=== PATIENT | female | born 1955 | race Caucasian/White ===

== ENCOUNTER → 2016-08-24 | Outpatient (CLI) | payer MEDICARE ==
[2016-08-24 12:54] LABS: Basophils # (A) 0.1 k/uL (0-0.2); Basophils % (A) 2 %; CH 34.3; Eosinophils # (A) 0.1 k/uL (0-0.7); Eosinophils % (A) 3 %; HCT 45.4 % (34.0-46.0); HDW 2.43; HGB 14.9 gm/dL (11.4-16.0); Luc % (Auto) 4; Lymphocytes # (A) 0.5 k/uL (1.0-4.8); Lymphocytes % (A) 18 %; MCH 34.4 pg (25.0-35.0); MCHC 32.9 g/dL (31.0-37.0); MCV 104.5 fL (80.0-100.0); Macrocytosis Moderate; Mean Platelet Volume 7.6; Monocytes # (A) 0.2 k/uL (0-1.0); Monocytes % (A) 6 %; Neutrophils % (A) 68 %; RBC 4.35 m/uL (3.80-5.40); RDW 15.1 % (11.5-15.5); WBC 2.9 k/uL (3.8-10.6); WBC (Perox) 2.95
[2016-08-24 13:11] LABS: Bilirubin, Delta 0.2 mg/dL (0.0-0.2); Total Bilirubin 0.7 mg/dL (0.2-1.3); Total Protein 7.1 g/dL (6.3-8.2)
== END | disposition home or self-care (01) ==
LOC: LABWHC1 11:42
DX: Z51.81 Encounter for therapeutic drug level monitoring (principal); Z79.899 Other long term (current) drug therapy
CPT/HCPCS: 36415; 80061; 80076; 84439; 84443; 84481; 85025

== ENCOUNTER → 2017-03-01 | Outpatient (CLI) | payer MEDICARE ==
[2017-03-01 11:10] LABS: HCT 46.6 % (34.0-46.0); HGB 14.4 gm/dL (11.4-16.0); Hypochromasia Slight; MCH 32.2 pg (25.0-35.0); MCHC 30.9 g/dL (31.0-37.0); MCV 104.3 fL (80.0-100.0); Macrocytosis Moderate; Mean Platelet Volume 8.5; Platelet Count 310 k/uL (150-450); RBC 4.47 m/uL (3.80-5.40); RDW 15.4 % (11.5-15.5)
[2017-03-01 12:14] LABS: ALT 37 U/L (9-52); AST 24 U/L (14-36); Albumin 3.7 g/dL (3.5-5.0); Alkaline Phosphatase 72 U/L (38-126); Anion Gap 7 mmol/L; Blood Urea Nitrogen 20 mg/dL (7-17); Calcium 9.5 mg/dL (8.4-10.2); Carbon Dioxide 30 mmol/L (22-30); Chloride 104 mmol/L (98-107); Cholesterol 153 mg/dL (<200); Glucose 103 mg/dL (74-99); HDL Cholesterol 61 mg/dL (40-60); LDL Cholesterol,Calculated 79 mg/dL (0-99); Potassium 4.9 mmol/L (3.5-5.1); Sodium 141 mmol/L (137-145); Total Bilirubin 0.8 mg/dL (0.2-1.3); Total Protein 6.4 g/dL (6.3-8.2); Triglycerides 64 mg/dL (<150)
== END | disposition home or self-care (01) ==
LOC: LABWHC1 10:37
PROVIDERS: ATTEND Family Medicine
DX: F39 Unspecified mood [affective] disorder (principal); R52 Pain, unspecified
CPT/HCPCS: 36415; 80053; 80061; 80175; 84443; 84481; 85027

== ENCOUNTER 2017-07-15 11:20 | Emergency (ER) | payer MEDICARE ==
[2017-07-15 12:50] LABS: Basophils # (A) 0.1 k/uL (0-0.2); Basophils % (A) 2 %; Eosinophils # (A) 0.2 k/uL (0-0.7); Eosinophils % (A) 4 %; HCT 45.3 % (34.0-46.0); HGB 14.4 gm/dL (11.4-16.0); Lymphocytes # (A) 0.6 k/uL (1.0-4.8); Lymphocytes % (A) 12 %; MCH 32.8 pg (25.0-35.0); MCHC 31.8 g/dL (31.0-37.0); Macrocytosis Slight; Mean Platelet Volume 7.3; Monocytes # (A) 0.2 k/uL (0-1.0); Monocytes % (A) 4 %; Neutrophils % (A) 77 %; Platelet Count 332 k/uL (150-450); RDW 14.1 % (11.5-15.5); WBC 5.2 k/uL (3.8-10.6)
[2017-07-15 12:57] LABS: Appearance,Urine Clear (Clear); Bilirubin,Urine Negative (Negative); Blood,Urine Negative (Negative); Color,Urine Colorless; Glucose,Urine (UA) Negative (Negative); Ketones,Urine Negative (Negative); Leukocyte Esterase,Urine Moderate (Negative); Mucus,Urine Rare /hpf; Nitrite,Urine Negative (Negative); Protein,Urine Negative (Negative); Specific Gravity,Urine 1.005 (1.001-1.035); Urobilinogen,Urine <2.0 mg/dL (<2.0); WBC,Urine 2 /hpf (0-5)
[2017-07-15 13:00] LABS: INR 1.1 (<1.2); Partial Thromboplastin Time 24.8 sec (22.0-30.0); Prothrombin Time 10.8 sec (9.0-12.0)
[2017-07-15 13:03] LABS: ALT 21 U/L (9-52); AST 20 U/L (14-36); Albumin 3.7 g/dL (3.5-5.0); Alkaline Phosphatase 81 U/L (38-126); Amylase 47 U/L (30-110); Anion Gap 12 mmol/L; Blood Urea Nitrogen 13 mg/dL (7-17); Calcium 9.3 mg/dL (8.4-10.2); Carbon Dioxide 28 mmol/L (22-30); Chloride 104 mmol/L (98-107); Glucose 89 mg/dL (74-99); Lipase 54 U/L (23-300); Potassium 4.8 mmol/L (3.5-5.1); Sodium 144 mmol/L (137-145); Total Bilirubin 0.4 mg/dL (0.2-1.3); Total Protein 6.4 g/dL (6.3-8.2)
[2017-07-15] MEDS ORDERED: RX INFO: IV CONTRAST WAS GIVEN 1 EACH MISC MISCELLANE PRN (13:13)
[2017-07-15] MEDS ORDERED: SODIUM CHLORIDE 0.9% 1,000 ML IV ONE (13:24)
[2017-07-15] MEDS ORDERED: SODIUM CHLORIDE 0.9% 1,000 ML IV SCH (13:30)
--- NOTE | 2017-07-15 13:41 | ED ---
Abdominal Pain HPI - General Chief Complaint: Abdominal Pain Stated Complaint: abdominal pain, rectal bleeding Time Seen by Provider: 07/15/17 12:09 Source: patient, RN notes reviewed, old records reviewed Mode of arrival: ambulatory Limitations: no limitations, physical limitation - History of Present Illness Initial Comments: This patient's a 62-year-old female presents emergency Department with her sister, legal guardian chief complaint of a rectal bleeding intermittently for the past few months. Patient has a history of Down syndrome. Patient's reports that today she was complaining of some abdominal pain. She does deal with constipation. Patient has had no fevers or chills. They report that were sent in by their primary care physician for further evaluation and to be admitted for GI workup. Patient family reports that she did have an episode of bloody stool today. She states that she does have a history of diverticulitis. - Related Data Home Medications Medication Instructions Recorded Confirmed ALPRAZolam [Xanax] 0.25 mg PO BID PRN 07/15/17 07/15/17 Cholecalciferol [Vitamin D3] 1,000 unit PO DAILY 07/15/17 07/15/17 Cyanocobalamin (Vitamin B-12) 1,000 mcg PO DAILY 07/15/17 07/15/17 [Vitamin B-12] Fexofenadine HCl [Flores Allergy] 180 mg PO DAILY 07/15/17 07/15/17 Levothyroxine Sodium [Synthroid] 88 mcg PO DAILY 07/15/17 07/15/17 Meloxicam [Mobic] 7.5 mg PO DAILY 07/15/17 07/15/17 Omeprazole 20 mg PO BID 07/15/17 07/15/17 lamoTRIgine [LaMICtal] 100 mg PO DAILY 07/15/17 07/15/17 Previous Rx's Medication Instructions Recorded Docusate [Colace] 100 mg PO DAILY #20 capsule 07/15/17 Allergies Allergy/AdvReac Type Severity Reaction Status Date / Time No Known Allergies Allergy Verified 07/15/17 12:06 Review of Systems ROS Statement: Those systems with pertinent positive or pertinent negative responses have been documented in the HPI. ROS Other: All systems not noted in ROS Statement are negative. Past Medical History Past Medical History: Unable to Obtain Additional Past Medical History / Comment(s): downs syndrome History of Any Multi-Drug Resistant Organisms: None Reported Past Surgical History: Unable to Obtain Past Psychological History: No Psychological Hx Reported Smoking Status: Never smoker Past Alcohol Use History: None Reported Past Drug Use History: None Reported General Exam - General Exam Comments Initial Comments: This patient's a 62-year-old female. Alert and oriented. No acute distress. Limitations: no limitations, physical limitation General appearance: alert, in no apparent distress Head exam: Present: atraumatic, normocephalic, normal inspection Eye exam: Present: normal appearance, PERRL, EOMI. Absent: scleral icterus, conjunctival injection, periorbital swelling ENT exam: Present: normal exam, mucous membranes moist Neck exam: Present: normal inspection. Absent: tenderness, meningismus, lymphadenopathy Respiratory exam: Present: normal lung sounds bilaterally. Absent: respiratory distress, wheezes, rales, rhonchi, stridor Cardiovascular Exam: Present: regular rate, normal rhythm, normal heart sounds. Absent: systolic murmur, diastolic murmur, rubs, gallop, clicks GI/Abdominal exam: Present: soft, tenderness (Left lower quadrant tenderness.), normal bowel sounds. Absent: distended, guarding, rebound, rigid Extremities exam: Present: normal inspection, full ROM, normal capillary refill. Absent: tenderness, pedal edema, joint swelling, calf tenderness Back exam: Present: normal inspection Neurological exam: Present: alert, oriented X3, CN II-XII intact Psychiatric exam: Present: normal affect, normal mood Skin exam: Present: warm, dry, intact, normal color. Absent: rash Course Vital Signs 07/15/17 07/15/17 07/15/17 11:27 13:39 15:04 Temperature 98.0 F 97.9 F Pulse Rate 65 65 58 L Respiratory 16 16 15 Rate Blood Pressure 137/65 138/69 144/61 O2 Sat by Pulse 100 97 100 Oximetry Medical Decision Making - Lab Data Result diagrams: 07/15/17 12:30 07/15/17 12:30 Lab Results 07/15/17 07/15/17 07/15/17 Range/Units 12:30 12:30 12:30 WBC 5.2 (3.8-10.6) k/uL RBC 4.40 (3.80-5.40) m/uL Hgb 14.4 (11.4-16.0) gm/dL Hct 45.3 (34.0-46.0) % MCV 103.0 H (80.0-100.0) fL MCH 32.8 (25.0-35.0) pg MCHC 31.8 (31.0-37.0) g/dL RDW 14.1 (11.5-15.5) % Plt Count 332 (150-450) k/uL Neutrophils % 77 % Lymphocytes % 12 % Monocytes % 4 % Eosinophils % 4 % Basophils % 2 % Neutrophils # 4.0 (1.3-7.7) k/uL Lymphocytes # 0.6 L (1.0-4.8) k/uL Monocytes # 0.2 (0-1.0) k/uL Eosinophils # 0.2 (0-0.7) k/uL Basophils # 0.1 (0-0.2) k/uL Macrocytosis Slight PT 10.8 (9.0-12.0) sec INR 1.1 (<1.2) APTT 24.8 (22.0-30.0) sec Sodium 144 (137-145) mmol/L Potassium 4.8 (3.5-5.1) mmol/L Chloride 104 (98-107) mmol/L Carbon Dioxide 28 (22-30) mmol/L Anion Gap 12 mmol/L BUN 13 (7-17) mg/dL Creatinine 0.80 (0.52-1.04) mg/dL Est GFR (CKD-EPI)AfAm >90 (>60 ml/min/1.73 sqM) Est GFR (CKD-EPI)NonAf 81 (>60 ml/min/1.73 sqM) Glucose 89 (74-99) mg/dL Calcium 9.3 (8.4-10.2) mg/dL Total Bilirubin 0.4 (0.2-1.3) mg/dL AST 20 (14-36) U/L ALT 21 (9-52) U/L Alkaline Phosphatase 81 (38-126) U/L Total Protein 6.4 (6.3-8.2) g/dL Albumin 3.7 (3.5-5.0) g/dL Amylase 47 (30-110) U/L Lipase 54 (23-300) U/L Urine Color Urine Appearance (Clear) Urine pH (5.0-8.0) Ur Specific [place] (1.001-1.035) Urine Protein (Negative) Urine Glucose (UA) (Negative) Urine Ketones (Negative) Urine Blood (Negative) Urine Nitrite (Negative) Urine Bilirubin (Negative) Urine Urobilinogen (<2.0) mg/dL Ur Leukocyte Esterase (Negative) Urine WBC (0-5) /hpf Urine Mucus (None) /hpf Stool Occult Blood (Negative) 07/15/17 07/15/17 Range/Units 12:30 13:37 WBC (3.8-10.6) k/uL RBC (3.80-5.40) m/uL Hgb (11.4-16.0) gm/dL Hct (34.0-46.0) % MCV (80.0-100.0) fL MCH (25.0-35.0) pg MCHC (31.0-37.0) g/dL RDW (11.5-15.5) % Plt Count (150-450) k/uL Neutrophils % % Lymphocytes % % Monocytes % % Eosinophils % % Basophils % % Neutrophils # (1.3-7.7) k/uL Lymphocytes # (1.0-4.8) k/uL Monocytes # (0-1.0) k/uL Eosinophils # (0-0.7) k/uL Basophils # (0-0.2) k/uL Macrocytosis PT (9.0-12.0) sec INR (<1.2) APTT (22.0-30.0) sec Sodium (137-145) mmol/L Potassium (3.5-5.1) mmol/L Chloride (98-107) mmol/L Carbon Dioxide (22-30) mmol/L Anion Gap mmol/L BUN (7-17) mg/dL Creatinine (0.52-1.04) mg/dL Est GFR (CKD-EPI)AfAm (>60 ml/min/1.73 sqM) Est GFR (CKD-EPI)NonAf (>60 ml/min/1.73 sqM) Glucose (74-99) mg/dL Calcium (8.4-10.2) mg/dL Total Bilirubin (0.2-1.3) mg/dL AST (14-36) U/L ALT (9-52) U/L Alkaline Phosphatase (38-126) U/L Total Protein (6.3-8.2) g/dL Albumin (3.5-5.0) g/dL Amylase (30-110) U/L Lipase (23-300) U/L Urine Color Colorless Urine Appearance Clear (Clear) Urine pH 6.0 (5.0-8.0) Ur Specific [place] 1.005 (1.001-1.035) Urine Protein Negative (Negative) Urine Glucose (UA) Negative (Negative) Urine Ketones Negative (Negative) Urine Blood Negative (Negative) Urine Nitrite Negative (Negative) Urine Bilirubin Negative (Negative) Urine Urobilinogen <2.0 (<2.0) mg/dL Ur Leukocyte Esterase Moderate H (Negative) Urine WBC 2 (0-5) /hpf Urine Mucus Rare H (None) /hpf Stool Occult Blood Negative (Negative) - Radiology Data Radiology results: report reviewed No visualization of the appendix. Nonacute inflammatory processes or obstruction changes present at this time. Mild fatty hepatic infiltration. Disposition Clinical Impression: History of rectal bleeding Disposition: HOME SELF-CARE Condition: Good Instructions: Rectal Bleeding (ED) Additional Instructions: Advised follow-up with primary care provider as well as follow-up with GI specialist. Recommended using daily stool softener. Increase fiber in her diet. Return to the emergency department if any alarming signs or symptoms occur including severe bloody stool. Prescriptions: Docusate [Colace] 100 mg PO DAILY #20 capsule Is patient prescribed a controlled substance at d/c from ED?: No If prescribed controlled substance>3 days was MAPS reviewed?: No When asked, does pt state using other controlled substances?: No Referrals: Ning Sherman MD [Primary Care Provider] - 1-2 days Time of Disposition: 15:09
--- NOTE | 2017-07-15 14:21 | CT ---
EXAMINATION TYPE: CT abdomen pelvis w con DATE OF EXAM: 07/15/2017 COMPARISON: NONE HISTORY: Patient complains of periumbilical pain. CT DLP: 386.5 mGycm CONTRAST: CT scan of the abdomen and pelvis is performed without Oral Contrast and with IV Contrast, patient in jected with 100 mL of Isovue 300. FINDINGS: LUNG BASES-: No visible nodule. No infiltrate. LIVER/GB: No calcified gallstones. No space occupying hepatic lesion. Biliary tree is of normal ca liber. Mild fatty hepatic infiltration. PANCREAS: No inflammation. No distinct mass. SPLEEN: No splenic enlargement. No lesion seen. ADRENALS: No nodule. No thickening. KIDNEYS/BLADDER: No hydronephrosis. No nephrolithiasis. No distinct renal mass. Urinary bladder g rossly unremarkable. BOWEL: The appendix is not clearly visualized. No definite inflammatory process to suggest appendicit is however exclusion of acute appendicitis should be made on a clinical basis. Normal bowel caliber. No inflammation. Sigmoid diverticulosis without diverticulitis. GENITAL ORGANS: No gross abnormality. LYMPH NODES: No greater than 1cm abdominal or pelvic lymph nodes are appreciated. AORTA: No significant abnormality. OSSEOUS STRUCTURES: No significant abnormality is seen. OTHER: No significant additional abnormality is seen. IMPRESSION: 1. Nonvisualization of the appendix. 2. No acute inflammatory process or obstructive change present at this time. 3. Mild fatty hepatic infiltration.
[2017-07-15 15:06] VITALS: BP 144/61; PULSE 58; RESP 15; TEMP 97.9
== END 2017-07-15 15:20 | disposition home or self-care (01) ==
LOC: EEVIPCON 11:20 → EC 11:20
DX: K59.00 Constipation, unspecified (principal); K76.0 Fatty (change of) liver, not elsewhere classified; R10.9 Unspecified abdominal pain; Q90.9 Down syndrome, unspecified; Z79.1 Long term (current) use of non-steroidal anti-inflammatories (NSAID); Z79.899 Other long term (current) drug therapy; Z87.19 Personal history of other diseases of the digestive system
CPT/HCPCS: 36415; 80053; 82150; 83690; 85025; 85610; 85730; 82272; 81001; 74177; 99284; 96360; 96361; Q9967

== ENCOUNTER 2017-10-11 08:28 | Day surgery (SDC) | payer MEDICARE, OTHER ==
[2017-10-09 14:20] VITALS: BMI 23.0
[~2017-10-11 08:28] MED LIST: LACTATED RINGERS 1,000 ML IV SCH; LIDOCAINE 1% 20 ML VIAL (10MG/ML) FOR IV START INTRADERMA PRN
[2017-10-11 09:02] VITALS: RESP 16; TEMP 98.6
[2017-10-11] MEDS ORDERED: GLYCOPYRROLATE 0.2 MG/ML 2 ML VIAL ONE (09:18)
[2017-10-11] MEDS ORDERED: PROPOFOL 10 MG/ML 20 ML VIAL IV ONE (09:18)
[2017-10-11] MEDS ORDERED: LIDOCAINE 1% INJ 10MG/ML (20 ML MDV) ONE (09:18)
--- NOTE | 2017-10-11 09:40 | P.PCN ---
Date of Procedure: 10/11/17 Procedure(s) Performed: Brief history: Patient is a pleasant 62-year-old white female with history of Down syndrome, scheduled for an elective upper endoscopy as well as colonoscopy as a part of evaluation of abdominal pain, change in bowel habits for the last several months duration Procedure performed: Esophagogastroduodenoscopy with biopsy Colonoscopy Preoperative diagnosis: GERD/abdominal pain/change in bowel habits Anesthesia: MAC Procedure: After informed consent was obtained from the patient was brought into the endoscopy unit and IV sedation was administered by anesthesia under continuous monitoring. Initially upper endoscopy was done. The Olympus GF 160 video endoscope was inserted inserted into the mouth and esophagus intubated without any difficulty and was gradually advanced into the stomach and duodenum and carefully examined. The bulb and second part of the duodenum appeared normal. The scope was then withdrawn into the stomach adequately insufflated with air and upon careful examination the antrum had patchy areas of erythema in the prepyloric area and biopsies were done from here to evaluate for H. pylori infection. The body, cardia and fundus appeared normal. The scope was then withdrawn into the esophagus. The GE junction was located at 34 cm to the incisors. It appeared regular with no erythema erosions or ulcerations. Rest of the esophagus appeared normal. Patient tolerated the procedure well. At this time the patient continued to remain sedation. Initial digital rectal examination was normal. Olympus CF 160 video colonoscope was then inserted into the rectum and gradually advanced to the cecum without any difficulty. Careful examination was performed as the scope was gradually being withdrawn. The prep was excellent. The cecum, ascending colon, transverse colon, descending colon, sigmoid colon and rectum appeared normal. Scattered sigmoid diverticulosis seen. Retroflexion was performed in the rectum and no lesions were noted. Patient tolerated the procedure well. Impression: 1. Upper endoscopy revealed mild gastritis but no evidence of esophagitis or peptic ulcer disease 2. Colonoscopy revealed scattered sigmoid diverticulosis but no evidence of colorectal neoplasia Recommendations: Findings of this examination were discussed with the patient as well marilyn family. She was advised to follow with the biopsy results. She will continue with Prilosec 20 mg daily and follow antireflux measures. She can have a repeat screening colonoscopy in 10 years.
[2017-10-11 10:01] VITALS: BP 102/68; PULSE 64
== END 2017-10-11 10:57 | disposition home or self-care (01) ==
LOC: ORWHC2ENDO 08:28
PROVIDERS: ATTEND Internal Medicine Gastroenterology
DX: K20.0 Eosinophilic esophagitis (principal); K29.50 Unspecified chronic gastritis without bleeding; K21.9 Gastro-esophageal reflux disease without esophagitis; K57.30 Diverticulosis of large intestine without perforation or abscess without bleeding; Z79.890 Hormone replacement therapy; Z79.899 Other long term (current) drug therapy; Q90.9 Down syndrome, unspecified; E07.9 Disorder of thyroid, unspecified; F39 Unspecified mood [affective] disorder
CPT/HCPCS: 88305; 88342; 45378; 43239; J2001; J2704

== ENCOUNTER 2018-02-14 11:40 | Emergency (ER) | payer MEDICARE, OTHER ==
[2018-02-14 11:47] VITALS: RESP 18
[2018-02-14] MEDS ORDERED: SODIUM CHLORIDE 0.9% 1,000 ML IV STA (12:09)
--- NOTE | 2018-02-14 12:36 | ED ---
Abdominal Pain HPI - General Chief Complaint: Abdominal Pain Stated Complaint: Abd Pain Time Seen by Provider: 02/14/18 11:58 Source: patient, EMS, RN notes reviewed, Caregiver Mode of arrival: EMS Limitations: physical limitation - History of Present Illness Initial Comments: 62-year-old female sent emergency Department via EMS for jaundice weakness. Patient reportedly was weak at her [place] republican. Patient has cognitive delay. Patient caregiver states that she is at her normal baseline. Patient had no GI issues no diarrhea no constipation. Patient had recent upper and lower GI. Patient said no fever or chills though she's had recent URI cough congestion. Patient reports no nausea vomiting. She does complain of some suprapubic pain. No dysuria. - Related Data Home Medications Medication Instructions Recorded Confirmed ALPRAZolam [Xanax] 0.25 mg PO BID PRN 07/15/17 02/14/18 Fexofenadine HCl [Flores Allergy] 180 mg PO DAILY PRN 07/15/17 02/14/18 Levothyroxine Sodium [Synthroid] 88 mcg PO DAILY 07/15/17 02/14/18 Omeprazole 20 mg PO BID 07/15/17 02/14/18 Docusate [Colace] 100 mg PO BID 02/14/18 02/14/18 Allergies Allergy/AdvReac Type Severity Reaction Status Date / Time No Known Allergies Allergy Verified 02/14/18 12:33 Review of Systems ROS Statement: Those systems with pertinent positive or pertinent negative responses have been documented in the HPI. ROS Other: All systems not noted in ROS Statement are negative. Past Medical History Past Medical History: GERD/Reflux, Thyroid Disorder Additional Past Medical History / Comment(s): Downs Syndrome; "Stomach pains" History of Any Multi-Drug Resistant Organisms: None Reported Past Surgical History: Tonsillectomy Additional Past Surgical History / Comment(s): Colonoscopy, Ankle repair Past Anesthesia/Blood Transfusion Reactions: No Reported Reaction Past Psychological History: No Psychological Hx Reported Smoking Status: Never smoker Past Alcohol Use History: None Reported Past Drug Use History: None Reported - Past Family History Mother Family Medical History: No Reported History General Exam Limitations: physical limitation General appearance: alert, in no apparent distress Head exam: Present: atraumatic, normocephalic, normal inspection Eye exam: Present: normal appearance, PERRL, EOMI. Absent: scleral icterus, conjunctival injection, periorbital swelling ENT exam: Present: normal exam, normal oropharynx, mucous membranes moist Neck exam: Present: normal inspection, full ROM. Absent: tenderness, meningismus, lymphadenopathy Respiratory exam: Present: normal lung sounds bilaterally. Absent: respiratory distress, wheezes, rales, rhonchi, stridor Cardiovascular Exam: Present: regular rate, normal rhythm, normal heart sounds. Absent: systolic murmur, diastolic murmur, rubs, gallop, clicks GI/Abdominal exam: Present: soft, tenderness (Moderate suprapubic), normal bowel sounds. Absent: distended, guarding, rebound, rigid Back exam: Absent: CVA tenderness (R), CVA tenderness (L) Skin exam: Present: warm, dry, intact, normal color. Absent: rash Course Vital Signs 02/14/18 11:41 Temperature 97.9 F Pulse Rate 69 Respiratory 18 Rate Blood Pressure 109/88 O2 Sat by Pulse 100 Oximetry Medical Decision Making - Medical Decision Making 8-year-old female presented with caregiver for weakness and [place] republican. Patient has no acute abnormality's on lab work, EKG or chest x-ray. Patient is stable and is at her normal baseline at this time. Patient was hydrated and will be discharged. - Lab Data Result diagrams: 02/14/18 12:39 02/14/18 12:39 Lab Results 02/14/18 02/14/18 02/14/18 Range/Units 12:39 12:39 12:39 WBC 4.8 (3.8-10.6) k/uL RBC 4.80 (3.80-5.40) m/uL Hgb 15.7 (11.4-16.0) gm/dL Hct 48.6 H (34.0-46.0) % MCV 101.4 H (80.0-100.0) fL MCH 32.7 (25.0-35.0) pg MCHC 32.3 (31.0-37.0) g/dL RDW 13.7 (11.5-15.5) % Plt Count 273 (150-450) k/uL Neutrophils % 81 % Lymphocytes % 8 % Monocytes % 5 % Eosinophils % 2 % Basophils % 2 % Neutrophils # 3.9 (1.3-7.7) k/uL Lymphocytes # 0.4 L (1.0-4.8) k/uL Monocytes # 0.2 (0-1.0) k/uL Eosinophils # 0.1 (0-0.7) k/uL Basophils # 0.1 (0-0.2) k/uL Macrocytosis Slight Sodium 139 (137-145) mmol/L Potassium 4.8 (3.5-5.1) mmol/L Chloride 104 (98-107) mmol/L Carbon Dioxide 27 (22-30) mmol/L Anion Gap 8 mmol/L BUN 25 H (7-17) mg/dL Creatinine 0.85 (0.52-1.04) mg/dL Est GFR (CKD-EPI)AfAm 86 (>60 ml/min/1.73 sqM) Est GFR (CKD-EPI)NonAf 75 (>60 ml/min/1.73 sqM) Glucose 104 H (74-99) mg/dL Calcium 9.0 (8.4-10.2) mg/dL Magnesium 2.2 (1.6-2.3) mg/dL Total Bilirubin 0.5 (0.2-1.3) mg/dL AST 26 (14-36) U/L ALT 18 (9-52) U/L Alkaline Phosphatase 87 (38-126) U/L Troponin I <0.012 (0.000-0.034) ng/mL Total Protein 6.9 (6.3-8.2) g/dL Albumin 3.6 (3.5-5.0) g/dL Urine Color Urine Appearance (Clear) Urine pH (5.0-8.0) Ur Specific [place] (1.001-1.035) Urine Protein (Negative) Urine Glucose (UA) (Negative) Urine Ketones (Negative) Urine Blood (Negative) Urine Nitrite (Negative) Urine Bilirubin (Negative) Urine Urobilinogen (<2.0) mg/dL Ur Leukocyte Esterase (Negative) Urine RBC (0-5) /hpf Urine WBC (0-5) /hpf Ur Squamous Epith Cells (0-4) /hpf Urine Bacteria (None) /hpf Hyaline Casts (0-2) /lpf Urine Mucus (None) /hpf 02/14/ Range/Units 12:39 WBC (3.8-10.6) k/uL RBC (3.80-5.40) m/uL Hgb (11.4-16.0) gm/dL Hct (34.0-46.0) % MCV (80.0-100.0) fL MCH (25.0-35.0) pg MCHC (31.0-37.0) g/dL RDW (11.5-15.5) % Plt Count (150-450) k/uL Neutrophils % % Lymphocytes % % Monocytes % % Eosinophils % % Basophils % % Neutrophils # (1.3-7.7) k/uL Lymphocytes # (1.0-4.8) k/uL Monocytes # (0-1.0) k/uL Eosinophils # (0-0.7) k/uL Basophils # (0-0.2) k/uL Macrocytosis Sodium (137-145) mmol/L Potassium (3.5-5.1) mmol/L Chloride (98-107) mmol/L Carbon Dioxide (22-30) mmol/L Anion Gap mmol/L BUN (7-17) mg/dL Creatinine (0.52-1.04) mg/dL Est GFR (CKD-EPI)AfAm (>60 ml/min/1.73 sqM) Est GFR (CKD-EPI)NonAf (>60 ml/min/1.73 sqM) Glucose (74-99) mg/dL Calcium (8.4-10.2) mg/dL Magnesium (1.6-2.3) mg/dL Total Bilirubin (0.2-1.3) mg/dL AST (14-36) U/L ALT (9-52) U/L Alkaline Phosphatase (38-126) U/L Troponin I (0.000-0.034) ng/mL Total Protein (6.3-8.2) g/dL Albumin (3.5-5.0) g/dL Urine Color Yellow Urine Appearance Clear (Clear) Urine pH 6.0 (5.0-8.0) Ur Specific [place] 1.029 (1.001-1.035) Urine Protein 1+ H (Negative) Urine Glucose (UA) Negative (Negative) Urine Ketones Negative (Negative) Urine Blood Negative (Negative) Urine Nitrite Negative (Negative) Urine Bilirubin Negative (Negative) Urine Urobilinogen 2.0 (<2.0) mg/dL Ur Leukocyte Esterase Small H (Negative) Urine RBC 1 (0-5) /hpf Urine WBC 5 (0-5) /hpf Ur Squamous Epith Cells 4 (0-4) /hpf Urine Bacteria Rare H (None) /hpf Hyaline Casts 36 H (0-2) /lpf Urine Mucus Many H (None) /hpf 02/14/18 14:37 EKG performed at 12:51 normal sinus rhythm with a rate of 70 [place] 116 QRS 86 QT/ QTC 422/455 Disposition Clinical Impression: Fatigue Disposition: HOME SELF-CARE Condition: Stable Instructions: Fatigue (ED) Additional Instructions: Please return to the Emergency Department if symptoms worsen or any other concerns. Is patient prescribed a controlled substance at d/c from ED?: No Referrals: Ning Sherman MD [Primary Care Provider] - 1-2 days Time of Disposition: 14:38
[2018-02-14 13:07] LABS: Basophils # (A) 0.1 k/uL (0-0.2); Basophils % (A) 2 %; Eosinophils # (A) 0.1 k/uL (0-0.7); Eosinophils % (A) 2 %; HCT 48.6 % (34.0-46.0); HGB 15.7 gm/dL (11.4-16.0); Lymphocytes # (A) 0.4 k/uL (1.0-4.8); Lymphocytes % (A) 8 %; MCH 32.7 pg (25.0-35.0); MCHC 32.3 g/dL (31.0-37.0); MCV 101.4 fL (80.0-100.0); Macrocytosis Slight; Mean Platelet Volume 7.4; Monocytes # (A) 0.2 k/uL (0-1.0); Monocytes % (A) 5 %; Neutrophils # (A) 3.9 k/uL (1.3-7.7); Neutrophils % (A) 81 %; Platelet Count 273 k/uL (150-450); RDW 13.7 % (11.5-15.5); WBC 4.8 k/uL (3.8-10.6)
--- NOTE | 2018-02-14 13:17 | XR ---
EXAMINATION TYPE: XR chest 2V DATE OF EXAM: 02/14/2018 COMPARISON: 07/23/2011 HISTORY: Shortness of breath TECHNIQUE: Frontal and lateral views of the chest are obtained. FINDINGS: Scattered senescent parenchymal changes noted. Hyperinflation compatible with COPD. No evidence for infiltrate. No evidence for atelectasis. Heart size is stable. Mediastinal structures are stable and grossly unremarkable. No evidence for hilar prominence. Degenerative changes dorsal spine. IMPRESSION: 1. No evidence for acute pulmonary disease.
[2018-02-14 13:18] LABS: Albumin 3.6 g/dL (3.5-5.0); Magnesium 2.2 mg/dL (1.6-2.3); Total Bilirubin 0.5 mg/dL (0.2-1.3); Total Protein 6.9 g/dL (6.3-8.2)
[2018-02-14 13:22] LABS: Potassium 4.8 mmol/L (3.5-5.1)
[2018-02-14 13:27] LABS: Appearance,Urine Clear (Clear); Bacteria,Urine Rare /hpf; Bilirubin,Urine Negative (Negative); Blood,Urine Negative (Negative); Color,Urine Yellow; Glucose,Urine (UA) Negative (Negative); Hyaline Casts,Urine 36 /lpf (0-2); Ketones,Urine Negative (Negative); Leukocyte Esterase,Urine Small (Negative); Mucus,Urine Many /hpf; Nitrite,Urine Negative (Negative); Protein,Urine 1+ (Negative); RBC,Urine 1 /hpf (0-5); Specific Gravity,Urine 1.029 (1.001-1.035); Squamous Epithelial Cell,Urine 4 /hpf (0-4); WBC,Urine 5 /hpf (0-5)
[2018-02-14 14:59] VITALS: BP 111/60; PULSE 68; TEMP 98.6
== END 2018-02-14 14:59 | disposition home or self-care (01) ==
LOC: EC 11:40
DX: R53.83 Other fatigue (principal); R10.9 Unspecified abdominal pain; K21.9 Gastro-esophageal reflux disease without esophagitis; E07.9 Disorder of thyroid, unspecified; Q90.9 Down syndrome, unspecified; Z79.899 Other long term (current) drug therapy
CPT/HCPCS: 36415; 71046; 80053; 81001; 83735; 84484; 85025; 93005; 96360; 99284

== ENCOUNTER 2019-04-25 17:27 | Emergency (ER) | payer MEDICARE, OTHER ==
[2019-04-25 17:34] VITALS: RESP 18
[2019-04-25] MEDS ORDERED: DICYCLOMINE 10 MG/ML 2 ML AMP IM STA (17:53)
[2019-04-25] MEDS ORDERED: ONDANSETRON 4 MG/2 ML VIAL IVP STA (17:53)
[2019-04-25] MEDS ORDERED: SODIUM CHLORIDE 0.9% 1,000 ML IV STA (17:53)
[2019-04-25 18:39] LABS: Basophils % (A) 0 %; Eosinophils # (A) 0.1 k/uL (0-0.7); Eosinophils % (A) 1 %; HCT 47.6 % (34.0-46.0); HGB 15.2 gm/dL (11.4-16.0); Lymphocytes # (A) 0.2 k/uL (1.0-4.8); Lymphocytes % (A) 3 %; MCH 33.3 pg (25.0-35.0); Macrocytosis Slight; Mean Platelet Volume 7.6; Monocytes # (A) 0.2 k/uL (0-1.0); Monocytes % (A) 3 %; Neutrophils # (A) 6.4 k/uL (1.3-7.7); Neutrophils % (A) 93 %; Platelet Count 263 k/uL (150-450); RBC 4.58 m/uL (3.80-5.40); RDW 13.6 % (11.5-15.5); WBC 6.9 k/uL (3.8-10.6)
--- NOTE | 2019-04-25 18:43 | ED ---
Nausea/Vomiting/Diarrhea HPI - General Source: family Mode of arrival: wheelchair Limitations: no limitations <Barry Zayas - Last Filed: 04/25/19 20:24> <Fermni Fraser - Last Filed: 04/25/19 21:51> - General Chief complaint: Nausea/Vomiting/Diarrhea Stated complaint: NVD Time Seen by Provider: 04/25/19 17:37 - History of Present Illness Initial comments: Patient is 63-year-old female with history of Down syndrome, anxiety and dementia presenting to emergency Department with chief complaint nausea vomiting diarrhea. Her sister, the legal guardian, is also present in the room as a historian. States the patient has been acting more hostile over the last 3 days. States the patient is also developed diarrhea over the last few days and she has a phobia of having any bowel movements in her underwear which is causing her to have increased anxiety. Her sister reports the vomiting is more likely related to her anxiety. Denies any night sweats fevers or chills. States the patient is not reliable when obtaining history regarding her pain. Her sister states the patient has been losing weight over the last 2 weeks even though she is eating a lot. (Barry Zayas) - Related Data Home Medications Medication Instructions Recorded Confirmed ALPRAZolam [Xanax] 0.25 mg PO BID PRN 07/15/17 02/14/18 Fexofenadine HCl [Flores Allergy] 180 mg PO DAILY PRN 07/15/17 02/14/18 Levothyroxine Sodium [Synthroid] 88 mcg PO DAILY 07/15/17 02/14/18 Omeprazole 20 mg PO BID 07/15/17 02/14/18 Docusate [Colace] 100 mg PO BID 02/14/18 02/14/18 Previous Rx's Medication Instructions Recorded Ondansetron Odt [Zofran Odt] 4 mg PO Q8HR PRN #10 tab 04/25/19 Allergies Allergy/AdvReac Type Severity Reaction Status Date / Time No Known Allergies Allergy Verified 04/25/19 17:34 Review of Systems ROS Other: All systems not noted in ROS Statement are negative. <Barry Zayas - Last Filed: 04/25/19 20:24> ROS Other: All systems not noted in ROS Statement are negative. <Fermin Fraser - Last Filed: 04/25/19 21:51> ROS Statement: Those systems with pertinent positive or pertinent negative responses have been documented in the HPI. Past Medical History Past Medical History: GERD/Reflux, Thyroid Disorder Additional Past Medical History / Comment(s): Down Syndrome; "Stomach pains" History of Any Multi-Drug Resistant Organisms: None Reported Past Surgical History: Tonsillectomy Additional Past Surgical History / Comment(s): Colonoscopy, Ankle repair Past Anesthesia/Blood Transfusion Reactions: No Reported Reaction Past Psychological History: No Psychological Hx Reported Smoking Status: Never smoker Past Alcohol Use History: None Reported Past Drug Use History: None Reported - Past Family History Mother Family Medical History: No Reported History <Barry Zayas - Last Filed: 04/25/19 20:24> General Exam Limitations: no limitations General appearance: alert, in no apparent distress Head exam: Present: atraumatic, normocephalic, normal inspection Eye exam: Present: normal appearance Pupils: Present: normal accommodation ENT exam: Present: normal exam Neck exam: Present: normal inspection, full ROM Respiratory exam: Present: normal lung sounds bilaterally Cardiovascular Exam: Present: regular rate, normal rhythm, normal heart sounds GI/Abdominal exam: Present: soft, tenderness (Diffuse abdominal tenderness) Rectal exam: Present: other (Dermatitis on gluteal cleft) Extremities exam: Present: normal inspection, full ROM Back exam: Present: normal inspection, full ROM Neurological exam: Present: alert, oriented X3 Psychiatric exam: Present: normal affect, normal mood Skin exam: Present: warm, dry, intact, normal color <Barry Zayas - Last Filed: 04/25/19 20:24> Course <Fermin Fraser - Last Filed: 04/25/19 21:51> Vital Signs 04/25/19 04/25/19 04/25/19 17:31 20:36 21:42 Temperature 98.3 F 98.4 F 98.2 F Pulse Rate 74 64 61 Respiratory 18 18 18 Rate Blood Pressure 94/52 125/50 110/64 O2 Sat by Pulse 99 97 99 Oximetry - Reevaluation(s) Reevaluation #1: 04/25/19 21:47 Patient is currently alert, breathing comfortably and in no apparent distress. Patient's sister is at bedside with the patient. Patient's sister is aware the patient's test results, and she feels comfortable taking the patient home at thi s time. (Fermin Fraser) Medical Decision Making - Lab Data Result diagrams: 04/25/19 18:25 04/25/19 18:25 <Barry Zayas - Last Filed: 04/25/19 20:24> - Lab Data Result diagrams: 04/25/19 18:25 04/25/19 18:25 - Radiology Data Radiology results: report reviewed (CT abdomen/pelvis with IV contrast shows nonspecific abdomen, fluid-filled loops of small bowel as well as some fluid in colon, no suspicious dilated loops of bowel) <Fermin Fraser - Last Filed: 04/25/19 21:51> - Medical Decision Making Patient is a 63-year-old female with history of dementia, anxiety and down syndrome presenting to the emergency department with a chief complaint of nausea vomiting diarrhea. The legal guardian, the patient's sister, as present as a historian. Difficult to obtain. Thorough Physical examination difficult to obtain a due to the Down syndrome. Patient does appear to have dermatitis at the gluteal cleft however this appears to be healing according to the legal guardian. Patient was given Tylenol for pain. Toradol and morphine were of fered but the legal guardian declined. CBC CMP and UA are unremarkable. UA culture pending. CT of abdomen and pelvis ordered. At this time patient care will be signed off to . (Barry Zayas) Patient was endorsed to me by ED VALENTINO Zayas secondary to end of his shift. Please refer to his note for detailed H&P. Patient is afebrile and without leukocytosis. Patient's labs are fairly unremarkable. Patient's CT abdomen and pelvis is nonspecific and consistent with gastroenteritis, which is what I suspect is the likely etiology of the patient's symptoms. Patient's sister is aware the patient's test results. Patient's sister feels comfortable taking the patient home at this time. She was counseled about vomiting/diarrhea/gastroenteritis. She was clearly explained return and follow- up instructions. She was instructed to return to the ED should the patient develop new or worsening pain, persistent or bloody vomiting or diarrhea, a fever, shortness of breath/trouble breathing, feeling dizzy or faint, or new or worsening symptoms. She was instructed to have the patient follow up closely with her primary care provider. She feels comfortable with this plan. (Fermin Fraser) - Lab Data Lab Results 04/25/19 04/25/19 04/25/19 Range/Units 18:25 18:25 19:35 WBC 6.9 (3.8-10.6) k/uL RBC 4.58 (3.80-5.40) m/uL Hgb 15.2 (11.4-16.0) gm/dL Hct 47.6 H (34.0-46.0) % MCV 104.0 H (80.0-100.0) fL MCH 33.3 (25.0-35.0) pg MCHC 32.0 (31.0-37.0) g/dL RDW 13.6 (11.5-15.5) % Plt Count 263 (150-450) k/uL Neutrophils % 93 % Lymphocytes % 3 % Monocytes % 3 % Eosinophils % 1 % Basophils % 0 % Neutrophils # 6.4 (1.3-7.7) k/uL Lymphocytes # 0.2 L (1.0-4.8) k/uL Monocytes # 0.2 (0-1.0) k/uL Eosinophils # 0.1 (0-0.7) k/uL Basophils # 0.0 (0-0.2) k/uL Macrocytosis Slight Sodium 137 (137-145) mmol/L Potassium 5.1 (3.5-5.1) mmol/L Chloride 104 (98-107) mmol/L Carbon Dioxide 26 (22-30) mmol/L Anion Gap 7 mmol/L BUN 25 H (7-17) mg/dL Creatinine 0.70 (0.52-1.04) mg/dL Est GFR (CKD-EPI)AfAm >90 (>60 ml/min/1.73 sqM) Est GFR (CKD-EPI)NonAf >90 (>60 ml/min/1.73 sqM) Glucose 108 H (74-99) mg/dL Calcium 8.8 (8.4-10.2) mg/dL Total Bilirubin 0.5 (0.2-1.3) mg/dL AST 31 (14-36) U/L ALT 18 (4-34) U/L Alkaline Phosphatase 76 (38-126) U/L Total Protein 6.7 (6.3-8.2) g/dL Albumin 3.8 (3.5-5.0) g/dL Amylase 56 (30-110) U/L Lipase 118 (23-300) U/L Urine Color Colorless Urine Appearance Clear (Clear) Urine pH 6.5 (5.0-8.0) Ur Specific [place] 1.008 (1.001-1.035) Urine Protein Negative (Negative) Urine Glucose (UA) Negative (Negative) Urine Ketones Negative (Negative) Urine Blood Negative (Negative) Urine Nitrite Negative (Negative) Urine Bilirubin Negative (Negative) Urine Urobilinogen <2.0 (<2.0) mg/dL Ur Leukocyte Esterase Negative (Negative) Disposition <Barry Zayas - Last Filed: 04/25/19 20:24> Is patient prescribed a controlled substance at d/c from ED?: No Time of Disposition: 21:45 <Fermin Fraser - Last Filed: 04/25/19 21:51> Clinical Impression: Gastroenteritis Disposition: HOME SELF-CARE Condition: Stable Instructions (If sedation given, give patient instructions): Acute Nausea and Vomiting (ED), Acute Diarrhea (ED) Additional Instructions: Return to the ER immediately should Bushra develop new or worsening pain, persistent or bloody vomiting or diarrhea, a fever, shortness of breath/trouble breathing, feeling dizzy or faint, or new or worsening symptoms. Have Bushra follow up closely with her primary care provider. Prescriptions: Ondansetron Odt [Zofran Odt] 4 mg PO Q8HR PRN #10 tab PRN Reason: Nausea Referrals: Ning Sherman MD [Primary Care Provider] - 1-2 days
[2019-04-25 18:51] LABS: ALT 18 U/L (4-34); AST 31 U/L (14-36); African American GFR (CKD) >90 (>60 ml/min/1.73 sqM); Albumin 3.8 g/dL (3.5-5.0); Alkaline Phosphatase 76 U/L (38-126); Amylase 56 U/L (30-110); Anion Gap 7 mmol/L; Blood Urea Nitrogen 25 mg/dL (7-17); Calcium 8.8 mg/dL (8.4-10.2); Carbon Dioxide 26 mmol/L (22-30); Chloride 104 mmol/L (98-107); Glucose 108 mg/dL (74-99); Non-African American GFR(CKD) >90 (>60 ml/min/1.73 sqM); Sodium 137 mmol/L (137-145); Total Bilirubin 0.5 mg/dL (0.2-1.3); Total Protein 6.7 g/dL (6.3-8.2)
[2019-04-25 19:05] LABS: Potassium 5.1 mmol/L (3.5-5.1)
[2019-04-25] MEDS ORDERED: KETOROLAC 30 MG/ML 1 ML VIAL IVP STA (19:27)
[2019-04-25 19:58] LABS: Appearance,Urine Clear (Clear); Bilirubin,Urine Negative (Negative); Blood,Urine Negative (Negative); Color,Urine Colorless; Glucose,Urine (UA) Negative (Negative); Ketones,Urine Negative (Negative); Leukocyte Esterase,Urine Negative (Negative); Nitrite,Urine Negative (Negative); PH, Urine 6.5 (5.0-8.0); Protein,Urine Negative (Negative); Specific Gravity,Urine 1.008 (1.001-1.035); Urobilinogen,Urine <2.0 mg/dL (<2.0)
[2019-04-25] MEDS ORDERED: MORPHINE SULFATE 4 MG/ML SYRINGE IVP STA (20:06)
[2019-04-25] MEDS ORDERED: ACETAMINOPHEN TAB 325 MG TAB PO STA (20:22)
--- NOTE | 2019-04-25 21:00 | CT ---
EXAMINATION TYPE: CT abdomen pelvis w con DATE OF EXAM: 04/25/2019 COMPARISON: 07/15/2017 INDICATION: Abdomen pain, weight loss DLP: 589.5 mGycm, Automated exposure control for dose reduction was used. CONTRAST: 100 mL of Isovue 300. Study performed without Oral Contrast TECHNIQUE: Axial images were obtained from above the diaphragm to the pubic rami in the axial plane a t 5 mm thick sections. Reconstructed images are reviewed on the computer in the coronal plane. FINDINGS: Limited CT sections are obtained the lung bases. The lung bases are clear. CT ABDOMEN: Liver: Normal Spleen: Normal Pancreas: Normal Adrenal glands: The adrenal glands are normal. Gallbladder: Normal Kidneys: No masses are evident. No hydronephrosis is present. No cysts are present. Delayed images were obtained through the kidneys, which remain unremarkable. Aorta: Normal Inferior vena cava: Normal. CT PELVIS: Small bowel loops contain fluid and are slightly prominent. A zone of transition is not identified. C onsider ileus within the differential. Some fluid filled colon as well as some fecal debris is within the colon. Consider gastroenteritis within the differential as well. Study is without oral contrast causing some limitation of the evaluation. Appendix: Not identified. Urinary bladder: Normal. Genitourinary structures: Uterus and ovaries are not identified Osseous structures: No suspicious lytic or sclerotic lesions. No acute fractures are evident. There i s spondylolysis of L5 and grade 1 spondylolisthesis. Degenerative disc changes are within the lumbar spine. IMPRESSIONS: 1. Nonspecific abdomen. There are fluid-filled loops of small bowel as well as some fluid within the colon. Correlate for gastroenteritis. Ileus could be considered. No suspicious dilated loops of alyce l are evident. 2. Spondylolysis of L5 with a grade 1 spondylolisthesis.
[2019-04-25 21:43] VITALS: BP 110/64; PULSE 61; TEMP 98.2
== END 2019-04-25 21:54 | disposition home or self-care (01) ==
LOC: EC 17:27
DX: K52.9 Noninfective gastroenteritis and colitis, unspecified (principal); L30.9 Dermatitis, unspecified; F03.90 Unspecified dementia, unspecified severity, without behavioral disturbance, psychotic disturbance, mood disturbance, and anxiety; F41.9 Anxiety disorder, unspecified; Q90.9 Down syndrome, unspecified; K21.9 Gastro-esophageal reflux disease without esophagitis; E07.9 Disorder of thyroid, unspecified; Z79.899 Other long term (current) drug therapy; Z53.20 Procedure and treatment not carried out because of patient's decision for unspecified reasons; Z98.890 Other specified postprocedural states
CPT/HCPCS: 51798; 36415; 80053; 82150; 83690; 85025; 81003; 74177; 99284; 96372; 96374; 96361 ×2; J0500; J2405; Q9967

== ENCOUNTER 2019-08-31 11:28 | Inpatient (IN) | payer MEDICARE, OTHER ==
--- NOTE | 2019-08-31 12:20 | ED ---
General Adult HPI - General Chief complaint: Recheck/Abnormal Lab/Rx Stated complaint: dementia Time Seen by Provider: 08/31/19 11:58 Source: family Mode of arrival: wheelchair Limitations: language barrier - History of Present Illness Initial comments: Dictation was produced using [employer] dictation software. please excuse any grammatical, word or spelling errors. This patient was cared for during a federal and state declared state of emergency secondary to Covid 19 Chief Complaint: 64-year-old female brought in by his sister, primary beaming inspector for senior living admission History of Present Illness: 64-year-old female she has history of Down syndrome. Sister brought her to the emergency department today for rehab admission. Sh e's been working with her primary care physician and was advised to come to the emergency department for more prompt admission to the senior living. sister was at bedside reports that patient has been much more difficult to care for. Last year patient was diagnosed with dementia. She's been steadily getting worse and becoming much more difficult to care for at home with the help of a home careta ker. Patient has been doing strange things like putting her finger in her anus and eating much more assistance with activities of daily living. Sr. is not concerned that patient is having an acute medical issue. Patient does not provide history due to chronic medical condition. Patient denies any pain. No shortness of breath or nausea. The ROS documented in this emergency department record has been reviewed and confirmed by me. Those systems with pertinent positive or negative responses have been documented in the HPI. All other systems are other negative and/or noncontributory. PHYSICAL EXAM: General Impression: Alert and oriented x2/4, not in acute distress HEENT: Normocephalic atraumatic, extra-ocular movements intact, pupils equal and reactive to light bilaterally, mucous membranes moist. Cardiovascular: Heart regular rate and rhythm Chest: Able to complete full sentences, no retractions, no tachypnea Abdomen: abdomen soft, non-tender, non-distended, no organomegaly Musculoskeletal: Pulses present and equal in all extremities, no peripheral edema Motor: no focal deficits noted Neurological: CN II-XII grossly intact, no focal motor or sensory deficits noted Skin: Intact with no visualized rashes Psych: Normal affect and mood ED course: 64-year-old female presents with worsening debility. She has a past medical history of dementia and Down syndrome. Vital signs upon arrival are within acceptable limits. Patient is well-appearing at bedside. She does not appear to be in any acute distress. Laboratory evaluation obtained. CBC unremarkable. Urinalysis shows urinary tract infection. Patient treated with 1 g of ceftriaxone. Patient will be admitted for acute on chronic debility and worsening delirium. Discussed patient case with Dr. Still is willing to accept patient's care for admission. - Related Data Home Medications Medication Instructions Recorded Confirmed Omeprazole 20 mg PO DAILY 07/15/17 08/31/19 Docusate [Colace] 100 mg PO BID 02/14/18 08/31/19 ALPRAZolam [Xanax] 0.5 mg PO BID PRN 08/31/19 08/31/19 Citalopram Hydrobromide 10 mg PO DAILY 08/31/19 08/31/19 [Citalopram HBr] Donepezil HCl [Aricept] 10 mg PO DAILY 08/31/19 08/31/19 Levothyroxine Sodium [Synthroid] 75 mcg PO DAILY 08/31/19 08/31/19 Memantine [Namenda] 5 mg PO BID 08/31/19 08/31/19 OLANZapine [ZyPREXA] 5 mg PO DAILY 08/31/19 08/31/19 Allergies Allergy/AdvReac Type Severity Reaction Status Date / Time No Known Allergies Allergy Verified 08/31/19 13:00 Review of Systems ROS Statement: Those systems with pertinent positive or pertinent negative responses have been documented in the HPI. ROS Other: All systems not noted in ROS Statement are negative. Past Medical History Past Medical History: GERD/Reflux, Thyroid Disorder Additional Past Medical History / Comment(s): Down Syndrome; "Stomach pains" History of Any Multi-Drug Resistant Organisms: None Reported Past Surgical History: Tonsillectomy Additional Past Surgical History / Comment(s): Colonoscopy, Ankle repair Past Anesthesia/Blood Transfusion Reactions: No Reported Reaction Past Psychological History: No Psychological Hx Reported Smoking Status: Never smoker Past Alcohol Use History: None Reported Past Drug Use History: None Reported - Past Family History Mother Family Medical History: No Reported History General Exam Limitations: language barrier Course Vital Signs 08/31/19 08/31/19 11:45 13:52 Temperature 98.0 F Pulse Rate 66 68 Respiratory 16 16 Rate Blood Pressure 102/58 137/78 O2 Sat by Pulse 96 95 Oximetry Medical Decision Making - Lab Data Result diagrams: 08/31/19 13:15 Lab Results 08/31/19 08/31/19 Range/Units 13:15 13:21 WBC 7.1 (3.8-10.6) k/uL RBC 4.29 (3.80-5.40) m/uL Hgb 15.1 (11.4-16.0) gm/dL Hct 45.7 (34.0-46.0) % MCV 106.6 H (80.0-100.0) fL MCH 35.1 H (25.0-35.0) pg MCHC 32.9 (31.0-37.0) g/dL RDW 13.9 (11.5-15.5) % Plt Count 334 (150-450) k/uL Neutrophils % 84 % Lymphocytes % 9 % Monocytes % 3 % Eosinophils % 1 % Basophils % 1 % Neutrophils # 6.0 (1.3-7.7) k/uL Lymphocytes # 0.7 L (1.0-4.8) k/uL Monocytes # 0.2 (0-1.0) k/uL Eosinophils # 0.1 (0-0.7) k/uL Basophils # 0.1 (0-0.2) k/uL Macrocytosis Moderate Urine Color Light Yellow Urine Appearance Cloudy H (Clear) Urine pH 7.0 (5.0-8.0) Ur Specific [place] 1.010 (1.001-1.035) Urine Protein Trace H (Negative) Urine Glucose (UA) Negative (Negative) Urine Ketones Negative (Negative) Urine Blood Trace H (Negative) Urine Nitrite Positive H (Negative) Urine Bilirubin Negative (Negative) Urine Urobilinogen <2.0 (<2.0) mg/dL Ur Leukocyte Esterase Large H (Negative) Urine RBC 8 H (0-5) /hpf Urine WBC >182 H (0-5) /hpf Urine WBC Clumps Many H (None) /hpf Ur Squamous Epith Cells 4 (0-4) /hpf Urine Bacteria Occasional H (None) /hpf Disposition Clinical Impression: Acute delirium, Debility Disposition: ADMITTED IP TO THIS [facility] Condition: Fair Referrals: Ning Sherman MD [Primary Care Provider] - 1-2 days Decision Time: 14:08
[2019-08-31 13:35] LABS: Basophils # (A) 0.1 k/uL (0-0.2); Basophils % (A) 1 %; Eosinophils # (A) 0.1 k/uL (0-0.7); Eosinophils % (A) 1 %; HCT 45.7 % (34.0-46.0); HGB 15.1 gm/dL (11.4-16.0); Lymphocytes # (A) 0.7 k/uL (1.0-4.8); Lymphocytes % (A) 9 %; MCH 35.1 pg (25.0-35.0); MCHC 32.9 g/dL (31.0-37.0); MCV 106.6 fL (80.0-100.0); Macrocytosis Moderate; Mean Platelet Volume 7.4; Monocytes # (A) 0.2 k/uL (0-1.0); Monocytes % (A) 3 %; Neutrophils % (A) 84 %; Platelet Count 334 k/uL (150-450); RBC 4.29 m/uL (3.80-5.40); RDW 13.9 % (11.5-15.5); WBC 7.1 k/uL (3.8-10.6)
[2019-08-31 13:54] LABS: Appearance,Urine Cloudy (Clear); Bacteria,Urine Occasional /hpf; Bilirubin,Urine Negative (Negative); Blood,Urine Trace (Negative); Color,Urine Light Yellow; Glucose,Urine (UA) Negative (Negative); Ketones,Urine Negative (Negative); Leukocyte Esterase,Urine Large (Negative); Nitrite,Urine Positive (Negative); Protein,Urine Trace (Negative); RBC,Urine 8 /hpf (0-5); Squamous Epithelial Cell,Urine 4 /hpf (0-4); Urobilinogen,Urine <2.0 mg/dL (<2.0); WBC,Urine >182 /hpf (0-5)
[2019-08-31] MEDS ORDERED: NALOXONE 0.4 MG/ML 1 ML VIAL IV PRN (14:05)
[2019-08-31] MEDS ORDERED: ALPRAZolam 0.5 MG TAB PO PRN (14:06)
[2019-08-31] MEDS ORDERED: cefTRIAXone IN SWFI 1,000 MG/10 ML SYRINGE IVP STA (14:07)
[2019-08-31 14:37] LABS: ALT 22 U/L (4-34); AST 33 U/L (14-36); African American GFR (CKD) >90 (>60 ml/min/1.73 sqM); Alkaline Phosphatase 95 U/L (38-126); Anion Gap 9 mmol/L; Blood Urea Nitrogen 23 mg/dL (7-17); Calcium 9.2 mg/dL (8.4-10.2); Carbon Dioxide 25 mmol/L (22-30); Chloride 104 mmol/L (98-107); Glucose 97 mg/dL (74-99); Non-African American GFR(CKD) >90 (>60 ml/min/1.73 sqM); Potassium 4.8 mmol/L (3.5-5.1); Sodium 138 mmol/L (137-145); Total Bilirubin 0.5 mg/dL (0.2-1.3)
[2019-08-31] MEDS: DOCUSATE 100 MG CAP PO SCH (20:59)
[2019-08-31] MEDS: MEMANTINE 5 MG TAB PO SCH (20:59)
--- NOTE | 2019-09-01 02:52 | CT ---
EXAMINATION TYPE: CT brain wo con DATE OF EXAM: 09/01/2019 COMPARISON: HISTORY: AMS CT DLP: 1036 mGycm Automated exposure control for dose reduction was used. There is cerebral cortical atrophy. There is extensive white matter hypodensity in both occipital lob es. There is white matter hypodensity right parietal lobe. There is some diffuse white matter hypoden sity both frontal lobes. There is no midline shift. There is no evidence of intracranial hemorrhage. There is no mass effect. Calvarium is intact. There is some cortical hypodensity right posterior occi pital lobe. IMPRESSION: Cerebral atrophy. Extensive chronic white matter changes probably due to chronic small vessel ischemi a. 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
[2019-09-01] MEDS: LEVOTHYROXINE 75 MCG TAB PO SCH (06:14)
[2019-09-01] MEDS: DONEPEZIL 10 MG TAB PO SCH (09:14)
[2019-09-01] MEDS: CITALOPRAM HYDROBROMIDE 10 MG TAB PO SCH (09:14)
[2019-09-01] MEDS: OLANZapine 5 MG TAB PO SCH (09:14)
[2019-09-01] MEDS: DOCUSATE 100 MG CAP PO SCH ×2 (09:14→21:37)
[2019-09-01] MEDS: PANTOPRAZOLE 40 MG TABLET PO SCH (09:14)
[2019-09-01] MEDS: MEMANTINE 5 MG TAB PO SCH ×2 (09:14→21:37)
--- NOTE | 2019-09-01 21:08 | P.HPIM ---
History of Present Illness H&P Date: 09/01/19 Chief Complaint: ELMO Stewart is a 64 yo F with PMH of Down syndrome who was brought in to the hospital by her sister due to worsening confusion and erratic behavior. Pt has been increasing requiring assistance with all her activities of daily living, constantly requiring help urinating and putting her finger in her anus. This has been worsening over the past few weeks. On presentation vitals were stable, WBC 7.4, UA with large nitrite and LE. CT brain with chronic changes. Review of Systems ROS unobtainable: due to mental status Past Medical History Past Medical History: GERD/Reflux, Thyroid Disorder Additional Past Medical History / Comment(s): Down Syndrome; heart murmer History of Any Multi-Drug Resistant Organisms: None Reported Past Surgical History: Tonsillectomy Additional Past Surgical History / Comment(s): Colonoscopy, left Ankle repair, bilateral cataracts/lens implants Past Anesthesia/Blood Transfusion Reactions: No Reported Reaction Past Psychological History: No Psychological Hx Reported Smoking Status: Never smoker Past Alcohol Use History: None Reported Past Drug Use History: None Reported - Past Family History Mother Family Medical History: No Reported History Medications and Allergies Home Medications Medication Instructions Recorded Confirmed Type Omeprazole 20 mg PO DAILY 07/15/17 08/31/19 History Docusate [Colace] 100 mg PO BID 02/14/18 08/31/19 History ALPRAZolam [Xanax] 0.5 mg PO BID PRN 08/31/19 08/31/19 History Citalopram Hydrobromide 10 mg PO DAILY 08/31/19 08/31/19 History [Citalopram HBr] Donepezil HCl [Aricept] 10 mg PO DAILY 08/31/19 08/31/19 History Levothyroxine Sodium [Synthroid] 75 mcg PO DAILY 08/31/19 08/31/19 History Memantine [Namenda] 5 mg PO BID 08/31/19 08/31/19 History OLANZapine [ZyPREXA] 5 mg PO DAILY 08/31/19 08/31/19 History Allergies Allergy/AdvReac Type Severity Reaction Status Date / Time No Known Allergies Allergy Verified 08/31/19 13:00 Physical Exam Vitals: Vital Signs Temp Pulse Pulse Resp BP Pulse Ox 09/01/19 19:40 64 18 09/01/19 12:26 98.0 F 57 L 18 118/73 96 09/01/19 09:18 97.7 F 62 110/74 100 Intake and Output 09/01/19 09/01/19 09/01/19 06:59 14:59 22:59 Intake Total 50 Balance 50 Intake: Intake, IV Titration 50 Amount cefTRIAXone 1 gm In 50 Sodium Chloride 0.9% 50 ml @ 100 mls/hr IVPB Q24HR [facility] Rx#:[id number] Other: Voiding Method Toilet Toilet # Voids 3 3 # Bowel Movements 0 General: well nourished, well developed, NAD. Vitals reviewed Eyes: PERRL, EOMI, conjunctiva normal HENT: normocephalic, mucus membranes moist Neck: supple, no JVD Lungs: normal respiratory effort, no wheezes or rales CV: Regular rate and rhythm, no murmur. Peripheral pulses 2+ Abdomen: soft, nondistended, no organomegaly. Suprapubic tenderness Lymph: no cervical or axillary LAD Skin: warm and dry. Neuro: Alert. Oriented to self. Follows simple commands Results CBC & Chem 7: 08/31/19 13:15 08/31/19 14:00 Labs: Microbiology - Last 24 Hours (Table) 08/31/19 13:21 Urine Culture - Preliminary Urine,Voided Thrombosis Risk Factor Assmnt - Choose All That Apply Any of the Below Risk Factors Present?: Yes Other Risk Factors: Yes Each Risk Factor Represents 2 Points: Age 61-74 years Other congenital or acquired thrombophilia - If yes, enter type in comment: No Thrombosis Risk Factor Assessment Total Risk Factor Score: 2 Thrombosis Risk Factor Assessment Level: Low Risk Assessment and Plan (1) Toxic encephalopathy Current Visit: Yes Status: Acute Code(s): G92 - TOXIC ENCEPHALOPATHY SNOMED Code(s): 07074678 (2) Acute cystitis Current Visit: Yes Status: Acute Code(s): N30.00 - ACUTE CYSTITIS WITHOUT HEMATURIA SNOMED Code(s): 75807010 (3) Down syndrome Current Visit: Yes Status: Acute Code(s): Q90.9 - DOWN SYNDROME, UNSPECIFIED SNOMED Code(s): 43084654 (4) Dementia Current Visit: Yes Status: Acute Code(s): F03.90 - UNSPECIFIED DEMENTIA WITHOUT BEHAVIORAL DISTURBANCE SNOMED Code(s): 18926067 Plan: 1. Toxic encephalopathy. Likely secondary to UTI. IV rocephin ordered. Case management consult, anticipate discharge to [facility] 2. Dementia. Down syndrome. Continue zyprexa, namenda, aricept 3. Hypothyroid. Continue synthroid
[2019-09-02] MEDS: LEVOTHYROXINE 75 MCG TAB PO SCH (05:26)
[2019-09-02] MEDS: PANTOPRAZOLE 40 MG TABLET PO SCH (07:16)
[2019-09-02] MEDS: DOCUSATE 100 MG CAP PO SCH ×2 (07:16→20:49)
[2019-09-02] MEDS: DONEPEZIL 10 MG TAB PO SCH (07:16)
[2019-09-02] MEDS: CITALOPRAM HYDROBROMIDE 10 MG TAB PO SCH (07:19)
[2019-09-02] MEDS: MEMANTINE 5 MG TAB PO SCH ×2 (13:30→20:49)
[2019-09-02] MEDS: OLANZapine 5 MG TAB PO SCH (13:30)
[2019-09-03] MEDS: LEVOTHYROXINE 75 MCG TAB PO SCH (06:16)
[2019-09-03] MEDS: PANTOPRAZOLE 40 MG TABLET PO SCH (08:29)
[2019-09-03] MEDS: CITALOPRAM HYDROBROMIDE 10 MG TAB PO SCH (08:29)
[2019-09-03] MEDS: DOCUSATE 100 MG CAP PO SCH (08:30)
[2019-09-03] MEDS: OLANZapine 5 MG TAB PO SCH (08:30)
[2019-09-03] MEDS: DONEPEZIL 10 MG TAB PO SCH (08:30)
[2019-09-03] MEDS: MEMANTINE 5 MG TAB PO SCH (08:30)
--- NOTE | 2019-09-03 09:43 | P.DS ---
Providers Date of admission: 08/31/19 14:05 Expected date of discharge: 09/03/19 Attending physician: Joshua Still MD [facility] Course: Final Diagnoses: (1) Toxic encephalopathy secondary to acute UTI with E. coli. Completed antibiotic treatment Current Visit: Yes Status: Acute Code(s): G92 - TOXIC ENCEPHALOPATHY SNOMED Code(s): 11838689 (2) Acute cystitis Current Visit: Yes Status: Acute Code(s): N30.00 - ACUTE CYSTITIS WITHOUT HEMATURIA SNOMED Code(s): 77580841 (3) Down syndrome Current Visit: Yes Status: Acute Code(s): Q90.9 - DOWN SYNDROME, UNSPECIFIED SNOMED Code(s): 62018023 (4) Dementia Current Visit: Yes Status: Acute Code(s): F03.90 - UNSPECIFIED DEMENTIA WITHOUT BEHAVIORAL DISTURBANCE SNOMED Code(s): 72496614 Hospital course:Bushra Stewart is a 64 yo F with PMH of Down syndrome who was brought in to the hospital by her sister due to worsening confusion and erratic behavior. Pt has been increasing requiring assistance with all her activities of daily living, constantly requiring help urinating and putting her finger in her anus. This has been worsening over the past few weeks. On presentation vitals were stable, WBC 7.4, UA with large nitrite and LE. CT brain with chronic changes. Maintained on IV antibiotics of Rocephin. Significant clinical improvement. Patient is being discharged today to [facility] subacute rehab in a stable condition with guarded prognosis. The impression and plan of care has been dictated as directed. : I performed a history and examination of this patient, discussed the same with the dictator. I agree with the dictator's note ,documented as a scribe. Any additional findings or plans will be noted. Patient Condition at Discharge: Stable Plan - Discharge Summary Discharge Rx Participant: No New Discharge Prescriptions: Continue Omeprazole 20 mg PO DAILY Docusate [Colace] 100 mg PO BID OLANZapine [ZyPREXA] 5 mg PO DAILY Memantine [Namenda] 5 mg PO BID Levothyroxine Sodium [Synthroid] 75 mcg PO DAILY Donepezil HCl [Aricept] 10 mg PO DAILY Citalopram Hydrobromide [Citalopram HBr] 10 mg PO DAILY ALPRAZolam [Xanax] 0.5 mg PO BID PRN #6 tab PRN Reason: Anxiety Discharge Medication List Omeprazole 20 mg PO DAILY 07/15/17 [History] Docusate [Colace] 100 mg PO BID 02/14/18 [History] Citalopram Hydrobromide [Citalopram HBr] 10 mg PO DAILY 08/31/19 [History] Donepezil HCl [Aricept] 10 mg PO DAILY 08/31/19 [History] Levothyroxine Sodium [Synthroid] 75 mcg PO DAILY 08/31/19 [History] Memantine [Namenda] 5 mg PO BID 08/31/19 [History] OLANZapine [ZyPREXA] 5 mg PO DAILY 08/31/19 [History] ALPRAZolam [Xanax] 0.5 mg PO BID PRN #6 tab 09/03/19 [Rx] Follow up Appointment(s)/Referral(s): Ning Sherman MD [Primary Care Provider] - 1 Week (After DC from subacute rehab) Activity/Diet/Wound Care/Special Instructions: Judy DELGADILLO Completed antibiotic therapy for E. coli UTI CBC, BMP in 3 days Discharge Disposition: TRANSFER TO SNF/F
--- NOTE | 2019-09-03 14:00 | P.PN ---
Subjective Progress Note Date: 09/02/19 Bushra Stewart is a 64 yo F with PMH of Down syndrome who was brought in to the hospital by her sister due to worsening confusion and erratic behavior. Pt has been increasing requiring assistance with all her activities of daily living, constantly requiring help urinating and putting her finger in her anus. This has been worsening over the past few weeks. On presentation vitals were stable, WBC 7.4, UA with large nitrite and LE. CT brain with chronic changes. 09/02/19 Maintained on IV antibiotics of Rocephin. Afebrile. Labs pending. Sensorium significantly improved. Objective - Vital Signs Vital signs: Vital Signs Temp 99.3 F 09/02/19 13:00 Pulse 55 L 09/02/19 13:00 Resp 14 09/02/19 13:00 BP 118/56 09/02/19 13:00 Pulse Ox 97 09/02/19 13:00 Intake & Output 09/01/19 09/02/19 09/02/19 18:59 06:59 18:59 Intake Total 50 480 250 Balance 50 480 250 Intake: Intake, IV Titration 50 Amount cefTRIAXone 1 gm In 50 Sodium Chloride 0.9% 50 ml @ 100 mls/hr IVPB Q24HR [facility] Rx#:[id number] Oral 480 250 Other: Voiding Method Toilet Toilet Toilet # Voids 3 3 2 # Bowel Movements 0 - Labs CBC & Chem 7: 08/31/19 13:15 08/31/19 14:00 Labs: Microbiology - Last 24 Hours (Table) 08/31/19 13:21 Urine Culture - Preliminary Urine,Voided Gram Neg Bacilli Assessment and Plan Assessment: (1) Toxic encephalopathy secondary to acute UTI , gram-negative bacilli Current Visit: Yes Status: Acute Code(s): G92 - TOXIC ENCEPHALOPATHY SNOMED Code(s): 75631318 (2) Acute cystitis Current Visit: Yes Status: Acute Code(s): N30.00 - ACUTE CYSTITIS WITHOUT HEMATURIA SNOMED Code(s): 89400532 (3) Down syndrome Current Visit: Yes Status: Acute Code(s): Q90.9 - DOWN SYNDROME, UNSPECIFIED SNOMED Code(s): 68015451 (4) Dementia Current Visit: Yes Status: Acute Code(s): F03.90 - UNSPECIFIED DEMENTIA WITHOUT BEHAVIORAL DISTURBANCE SNOMED Code(s): 00412012 Plan: Continue current medication regime ,monitoring antibiotic treatment. Maintain IV antibiotics, final urine culture results pending. Discharge planning in progress for [facility] tomorrow. The impression and plan of care has been dictated as directed. : I performed a history and examination of this patient, discussed the same with the dictator. I agree with the dictator's note ,documented as a scribe. Any additional findings or plans will be noted.
[2019-09-04 08:02] VITALS: BP 128/81; PULSE 59; RESP 14; TEMP 98
== END 2019-09-03 12:15 | DRG 689 ==
LOC: EC 11:28 → 5NMEDONC 14:05
PROVIDERS: ADMIT Family Medicine; ATTEND Family Medicine
DX: N30.00 Acute cystitis without hematuria (principal); G92 Toxic encephalopathy; B96.20 Unspecified Escherichia coli [E. coli] as the cause of diseases classified elsewhere; E03.9 Hypothyroidism, unspecified; F03.90 Unspecified dementia, unspecified severity, without behavioral disturbance, psychotic disturbance, mood disturbance, and anxiety; Q90.9 Down syndrome, unspecified; Z79.890 Hormone replacement therapy; Z79.899 Other long term (current) drug therapy; Z98.42 Cataract extraction status, left eye; Z98.41 Cataract extraction status, right eye; Z96.1 Presence of intraocular lens; Z11.59 Encounter for screening for other viral diseases
CPT/HCPCS: 36415; 70450; 80053; 81001; 85025; 87077; 87086; 87186; 96374; 99284

== ENCOUNTER 2019-10-22 07:02 | Emergency (ER) | payer MEDICARE, OTHER ==
[2019-10-22] MEDS ORDERED: SODIUM CHLORIDE 0.9% 1,000 ML IV ONE ×2 (07:17→08:42)
--- NOTE | 2019-10-22 07:21 | ED ---
Fall HPI - General Source: patient, EMS, RN notes reviewed, old records reviewed Mode of arrival: EMS <Milagro Trinh - Last Filed: 10/22/19 09:04> <Abisai Zhang - Last Filed: 10/22/19 09:20> - General Chief Complaint: Fall Stated Complaint: Fall Time Seen by Provider: 10/22/19 07:03 - History of Present Illness Initial Comments: Patient is a 64-year-old female presents emergency on the leg with chief complaint of fall. Patient has a history of Down's syndrome. Patient reportedly fell and from sitting from the leg chair and struck the back of her head on the wooden leg of the chair. She is not on blood thinners. Patient is at baseline according to family and [facility] staff. Patient sister who is her guardian and caregiver presents the ER stating that she would ice like to have her checked for urinary tract infection as she does have frequent urination and does get UTIs frequently, and that is why she was trying to get up and fell. According to nursing staff at [facility] she is at her baseline. Oriented to place and self.. (Milagro Trinh) - Related Data Home Medications Medication Instructions Recorded Confirmed Omeprazole 20 mg PO DAILY 07/15/17 08/31/19 Docusate [Colace] 100 mg PO BID 02/14/18 08/31/19 Citalopram Hydrobromide 10 mg PO DAILY 08/31/19 08/31/19 [Citalopram HBr] Donepezil HCl [Aricept] 10 mg PO DAILY 08/31/19 08/31/19 Levothyroxine Sodium [Synthroid] 75 mcg PO DAILY 08/31/19 08/31/19 Memantine [Namenda] 5 mg PO BID 08/31/19 08/31/19 OLANZapine [ZyPREXA] 5 mg PO DAILY 08/31/19 08/31/19 Previous Rx's Medication Instructions Recorded ALPRAZolam [Xanax] 0.5 mg PO BID PRN #6 tab 09/03/19 Allergies Allergy/AdvReac Type Severity Reaction Status Date / Time No Known Allergies Allergy Verified 08/31/19 13:00 Review of Systems ROS Other: All systems not noted in ROS Statement are negative. <Milagro Trinh - Last Filed: 10/22/19 09:04> ROS Other: All systems not noted in ROS Statement are negative. <Abisai Zhang - Last Filed: 10/22/19 09:20> ROS Statement: Those systems with pertinent positive or pertinent negative responses have been documented in the HPI. Past Medical History Past Medical History: GERD/Reflux, Thyroid Disorder Additional Past Medical History / Comment(s): Down Syndrome; heart murmer History of Any Multi-Drug Resistant Organisms: None Reported Past Surgical History: Tonsillectomy Additional Past Surgical History / Comment(s): Colonoscopy, left Ankle repair, bilateral cataracts/lens implants Past Anesthesia/Blood Transfusion Reactions: No Reported Reaction Past Psychological History: No Psychological Hx Reported Smoking Status: Never smoker Past Alcohol Use History: None Reported Past Drug Use History: None Reported - Past Family History Mother Family Medical History: No Reported History <ZiggyMilagro - Last Filed: 10/22/19 09:04> General Exam Limitations: altered mental status General appearance: alert, in no apparent distress Head exam: Present: atraumatic, other (Patient has a 1 cm laceration over the posterior scalp.) Eye exam: Present: normal appearance, PERRL, EOMI. Absent: scleral icterus, conjunctival injection, periorbital swelling ENT exam: Present: normal exam, mucous membranes moist Neck exam: Present: normal inspection Respiratory exam: Present: normal lung sounds bilaterally. Absent: respiratory distress, wheezes, rales, rhonchi, stridor Cardiovascular Exam: Present: regular rate, normal rhythm, normal heart sounds. Absent: systolic murmur, diastolic murmur, rubs, gallop, clicks GI/Abdominal exam: Present: soft Extremities exam: Present: normal inspection, full ROM, normal capillary refill. Absent: tenderness, pedal edema, joint swelling, calf tenderness Back exam: Present: normal inspection Neurological exam: Present: alert, CN II-XII intact Expanded Patient oriented to: Present: person Speech: Present: fluid speech Cranial nerves: EOM's Intact: Normal Upper motor neuron: Pronator Drift: Normal Sensory exam: Upper Extremity Light Touch: Normal, Lower Extremity Light Touch: Normal Motor strength exam: RUE: 5, LUE: 5, RLE: 5, LLE: 5 Eye Response: (4) open spontaneously Motor Response: (6) obeys commands Verbal Response: (4) confused conversation Jewett Total: 15 (Family reports at baseline) Psychiatric exam: Present: normal affect, normal mood Skin exam: Present: warm, dry, intact, normal color. Absent: rash <Milagro Trinh - Last Filed: 10/22/19 09:04> - General Exam Comments Initial Comments: 64-year-old female. Alert, alert and oriented to place. Does not know the date but this is baseline for Patient. She has features of Down syndrome. No significant distress. (Milagro Trinh) Course <Milagro Trinh - Last Filed: 10/22/19 09:04> Vital Signs 10/22/19 10/22/19 07:03 09:06 Temperature 98.7 F 98.4 F Pulse Rate 62 82 Respiratory 16 17 Rate Blood Pressure 100/52 139/79 O2 Sat by Pulse 100 Oximetry - Reevaluation(s) Reevaluation #1: 10/22/19 09:04 Delay patient's care of her family members deciding on which facility he would like to be transferred to. They eventually decided for [facility]. They'll Patient this time. (Milagro Trinh) Medical Decision Making - Lab Data Result diagrams: 10/22/19 07:51 10/22/19 07:51 - Radiology Data Radiology results: report reviewed <Milagro Trinh - Last Filed: 10/22/19 09:04> - Lab Data Result diagrams: 10/22/19 07:51 10/22/19 07:51 <Abisai Zhang - Last Filed: 10/22/19 09:20> - Medical Decision Making 64-year-old female presents emergency department today after her chief complaint of a fall from sitting position attempting to stand. Patient reportedly fell backwards striking the back of her head on a wooden leg of her chair. She does have a 1 cm laceration over posterior scalp. This is closed and bleeding is well-controlled. Patient is at her baseline mental status and does have a history of Down syndrome. Alert and oriented to name and place. Patient in no acute focal neurological deficits on exam. Patient had a computed tomography scan of the brain and was identified have intraparenchymal hemorrhage as well as subarachnoid hemorrhage. She is not on blood thinners. Patient's sister were her guardian was at bedside states that she is at her baseline mental status. I discussed case my attending physician within computed tomography scan was report was reviewed. Patient will be transferred to nearest facility with patient's [place] [facility] will be transferred in stable condition at this time. Accepting physician was Dr. Pedro. (Milagro Trinh) Patient was reexamined and reevaluated by myself, Dr. Zhang. I do agree with PA findings. This includes diagnostic interpretation and treatment plan. I do question of patient does have mild difficulty with lateral gaze of the right eye. Family is present and also believes her may be minimal changes well. Family states patient is a little more nausea than normal however patient is alert and does follow simple commands. Patient has no extremity weakness on exam. CT report reviewed. Family requested transfer to [facility] and this has been arranged. Patient will go priority one transfer by EMS who is currently in route. (Abisai Zhang) - Lab Data Lab Results 10/22/19 10/22/19 Range/Units 07:51 07:51 WBC 6.0 (3.8-10.6) k/uL RBC 4.07 (3.80-5.40) m/uL Hgb 13.4 (11.4-16.0) gm/dL Hct 43.1 (34.0-46.0) % MCV 105.9 H (80.0-100.0) fL MCH 33.0 (25.0-35.0) pg MCHC 31.2 (31.0-37.0) g/dL RDW 14.6 (11.5-15.5) % Plt Count 297 (150-450) k/uL Neutrophils % 84 % Lymphocytes % 9 % Monocytes % 4 % Eosinophils % 1 % Basophils % 1 % Neutrophils # 5.0 (1.3-7.7) k/uL Lymphocytes # 0.5 L (1.0-4.8) k/uL Monocytes # 0.3 (0-1.0) k/uL Eosinophils # 0.1 (0-0.7) k/uL Basophils # 0.1 (0-0.2) k/uL Macrocytosis Moderate Sodium 138 (137-145) mmol/L Potassium 4.1 (3.5-5.1) mmol/L Chloride 104 (98-107) mmol/L Carbon Dioxide 28 (22-30) mmol/L Anion Gap 6 mmol/L BUN 25 H (7-17) mg/dL Creatinine 0.67 (0.52-1.04) mg/dL Est GFR (CKD-EPI)AfAm >90 (>60 ml/min/1.73 sqM) Est GFR (CKD-EPI)NonAf >90 (>60 ml/min/1.73 sqM) Glucose 136 H (74-99) mg/dL Calcium 8.8 (8.4-10.2) mg/dL - Radiology Data No acute fracture dislocation evident cervical spine. Small 1.7 m focus of acute right frontal intraparenchymal hemorrhage. Additional some similar small er foci of subarachnoid hemorrhage bilaterally felt present. No midline shift. Large left frontal acute scalp hematoma. No acute displaced facial bone fracture clearly seen. (Milagro Trinh) Disposition Is patient prescribed a controlled substance at d/c from ED?: No Time of Disposition: 09:11 - Out of Hospital Transfer - Req. Specs Out of Hospital Transfer - Requested Specifics: Other Emergency Center ([facility]) <Milagro Trinh - Last Filed: 10/22/19 09:04> <Abisai Zhang - Last Filed: 10/22/19 09:20> Clinical Impression: Down syndrome, Intraparenchymal hemorrhage of brain, Subarachnoid hemorrhage Disposition: DC/TRNS INTERMEDIATE CARE FAC Condition: Stable Referrals: Reid Dalal MD [Primary Care Provider] - 1-2 days
[2019-10-22 08:03] LABS: Basophils # (A) 0.1 k/uL (0-0.2); Basophils % (A) 1 %; Eosinophils # (A) 0.1 k/uL (0-0.7); Eosinophils % (A) 1 %; HCT 43.1 % (34.0-46.0); HGB 13.4 gm/dL (11.4-16.0); Lymphocytes # (A) 0.5 k/uL (1.0-4.8); Lymphocytes % (A) 9 %; MCHC 31.2 g/dL (31.0-37.0); MCV 105.9 fL (80.0-100.0); Macrocytosis Moderate; Mean Platelet Volume 7.7; Monocytes # (A) 0.3 k/uL (0-1.0); Monocytes % (A) 4 %; Neutrophils % (A) 84 %; Platelet Count 297 k/uL (150-450); RBC 4.07 m/uL (3.80-5.40); RDW 14.6 % (11.5-15.5)
[2019-10-22 08:25] LABS: African American GFR (CKD) >90 (>60 ml/min/1.73 sqM); Anion Gap 6 mmol/L; Blood Urea Nitrogen 25 mg/dL (7-17); Calcium 8.8 mg/dL (8.4-10.2); Carbon Dioxide 28 mmol/L (22-30); Chloride 104 mmol/L (98-107); Glucose 136 mg/dL (74-99); Non-African American GFR(CKD) >90 (>60 ml/min/1.73 sqM); Potassium 4.1 mmol/L (3.5-5.1); Sodium 138 mmol/L (137-145)
--- NOTE | 2019-10-22 09:03 | CT ---
EXAMINATION TYPE: CT brain cspine wo con, CT facial bones wo con DATE OF EXAM: 10/22/2019 COMPARISON: CT brain September 01, 2019. HISTORY: Fall (accession [id number]), fall (accession [id number]) injury with headache, facial pain, and neck pain. CT DLP: 1004.9 (accession [id number]), included in brain c-spine (accession [id number]) mGycm. Automated Exposure Control for Dose Reduction was Utilized. TECHNIQUE: CT scan of the head, facial bones, and cervical spine are performed without contrast. FINDINGS: New Large left frontal acute scalp hematoma. There is focus of acute intraparenchymal hemo rrhage high right frontal region axial image 34 and coronal image 27 measuring roughly 1.7 x 1.2 x 1. 1 cm. New additional suspicious for millimeter focus high right frontal lobe axial image 41 could be intraparenchymal or subarachnoid in location. Suspect additional subarachnoid bilateral frontal lobe small foci axial image 35 for reference. Diffuse ventricular and sulcal prominence. Low-attenuation i n the deep and periventricular white matter. The calvarium is intact. The mandible is intact. The temporomandibular joints are maintained bilaterally. The nasal bones are intact. The zygomatic arches are intact. Pterygoid plates are intact. Orbital floors and watson are in tact. The globes are intact bilaterally. Intraconal fat is preserved. Paranasal sinuses are grossly c lear. There is persistent anterior metopic suture incidentally noted. Scattered foci of air are present near the level of the masseter muscles bilaterally without obvious osseous fracture slightly greater on the right. Etiology uncertain. Patchy cerumen left external crispin tory canal noted. Cervical spine is visualized in its entirety from C1 through upper thoracic levels and demonstrates S -shaped scoliotic curvature Omni coronal images without evidence of acute fracture or dislocation. P revertebral soft tissue appears within normal limits. The C1-C2 articulation is within normal limits on the coronal images. Vertebral body heights are maintained. Moderate disc space narrowing and spu rring C3-C4, C4-C5, and C6-C7 levels. Slight grade 1 retrolisthesis C4 on C5 and grade 1 anterolisthe sis C7 on T1 and sagittal images. Review of axial images shows some multilevel uncovertebral facet degenerative changes, for reference left C3-C4 level contributing to multilevel neural foraminal narrowing. Thyroid gland not well seen a nd may be atrophic or hypoplastic. No pneumothorax visualized lung apices. IMPRESSION: 1. There is no acute fracture or dislocation evident in the cervical spine. 2. Small 1.7 cm focus of acute right frontal intraparenchymal hemorrhage. Additional subcentimeter sm aller foci of subarachnoid hemorrhage bilaterally are felt present. No midline shift. 3. Large left frontal acute scalp hematoma. No acute displaced facial bone fracture clearly seen. Critical result of acute intracranial hemorrhage discussed with ordering ER physician certified surgical tech/first assistant via [employer] at time of dictation.
[2019-10-22 09:06] VITALS: PULSE 82; RESP 17; TEMP 98.4
[2019-10-22] MEDS ORDERED: levETIRAcetam IV 1,000 MG in SALINE 1 100ML.BAG IVPB STA (09:17)
[2019-10-22 09:39] LABS: INR 0.9 (<1.2); Partial Thromboplastin Time 22.8 sec (22.0-30.0); Prothrombin Time 9.8 sec (9.0-12.0)
[2019-10-22 09:42] VITALS: BP 124/79
[2019-10-22 09:44] LABS: Amorphous Sediment,Urine Rare /hpf; Appearance,Urine Cloudy (Clear); Bacteria,Urine Moderate /hpf; Bilirubin,Urine Negative (Negative); Blood,Urine Trace (Negative); Color,Urine Yellow; Glucose,Urine (UA) Negative (Negative); Ketones,Urine Negative (Negative); Leukocyte Esterase,Urine Large (Negative); Mucus,Urine Rare /hpf; Nitrite,Urine Negative (Negative); Protein,Urine Negative (Negative); RBC,Urine 10 /hpf (0-5); Urobilinogen,Urine <2.0 mg/dL (<2.0); WBC,Urine 29 /hpf (0-5)
== END 2019-10-22 09:58 ==
LOC: EC 07:02
DX: S06.6X0A Traumatic subarachnoid hemorrhage without loss of consciousness, initial encounter (principal); S01.01XA Laceration without foreign body of scalp, initial encounter; K21.9 Gastro-esophageal reflux disease without esophagitis; E07.9 Disorder of thyroid, unspecified; Q90.9 Down syndrome, unspecified; Z79.890 Hormone replacement therapy; Z79.899 Other long term (current) drug therapy; Z98.42 Cataract extraction status, left eye; Z98.41 Cataract extraction status, right eye; W07.XXXA Fall from chair, initial encounter; Y93.89 Activity, other specified; Y92.89 Other specified places as the place of occurrence of the external cause
CPT/HCPCS: 36415; 80048; 85025; 85610; 85730; 81001; 87086; 72125; 70486; 70450; 99291; 96374; 96361 ×2; J1953